=== PATIENT | male | born 1965 | race Caucasian/White ===

== ENCOUNTER 2020-12-13 09:19 | Emergency (ER) | payer OTHER ==
[2020-12-13] MEDS ORDERED: MEDROL 4MG DOSEP4 MG PO (10:24)
[2020-12-13] MEDS ORDERED: KETOROLAC TROME10 MG PO (10:24)
[2020-12-13] MEDS ORDERED: CYCLOBENZAPRINE10 MG PO (10:24)
== END 2020-12-13 10:58 | disposition home or self-care (01) ==
LOC: FER 09:19
DX: M54.16 Radiculopathy, lumbar region (principal); G89.29 Other chronic pain; R10.2 Pelvic and perineal pain; I10 Essential (primary) hypertension; Z88.0 Allergy status to penicillin
CPT/HCPCS: 99283; J1885

== ENCOUNTER 2021-09-05 12:48 | Inpatient (IN) | payer OTHER ==
[~2021-09-05] VITALS: Ht 172.7 cm; Wt 92.2 kg
[~2021-09-05 12:48] MED LIST: CYCLOBENZAPRINE10 MG PO; KETOROLAC TROME10 MG PO; MEDROL 4MG DOSEP4 MG PO
[2021-09-05 13:32] LABS: BASOPHIL 0.4 % (0-2); EOSINOPHIL 0.1 % (0-5); HCT 50.3 % (42.0-52.0); HGB 17.6 g/dl (13.2-18.0); LYMPHOCYTE 7.1 % (15-48); MCH 33.2 pg (25.0-31.0); MCV 94.9 fL (78.0-100.0); MONOCYTE 7.8 % (0-12); MPV 8.5 fL (6.0-9.5); NEUTROPHIL 83.2 % (41-80); NRBC 0; PLT 282 K/uL (150-400); RDW 13.2 % (11.5-14.0); WBC 27.7 K/uL (4.0-10.5)
[2021-09-05 13:43] LABS: BILIRUBIN 1+ mg/dL (NEGATIVE); BLOOD TRACE-LYSED Ery/uL (NEGATIVE); CLARITY CLEAR (CLEAR); COLOR YELLOW (YELLOW); GLUCOSE (U) NORMAL (NORMAL); LEUKOCYTES NEGATIVE Leu/uL (NEGATIVE); NITRITE NEGATIVE (NEGATIVE); PROTEIN TRACE (LOW) mg/dL (NEGATIVE); SPECIFIC GRAVITY >=1.030 (1.001-1.030); UROBILINOGEN 0.2 mg/dL (0.2-1.0); pH 5.5 (5.0-9.0)
[2021-09-05 13:51] LABS: BACTERIA TRACE; URINARY RBC RARE
[2021-09-05 13:52] LABS: MUCOUS MODERATE
[2021-09-05 13:52] LABS: LACTIC ACID 2.1 mmol/L (0.4-1.9)
[2021-09-05 13:57] LABS: BUN/CREAT RATIO (CALC) 8.5 RATIO; GLOBULIN (CALCULATION) 4.4 g/dL; POTASSIUM 4.3 mmol/L (3.5-5.1); TOTAL PROTEIN 8.4 g/dL (6.4-8.2)
[2021-09-05 14:30] LABS: CORONAVIRUS 2019 SARS-COV-2 NEGATIVE (NEGATIVE); INFLUENZA A NAA NEGATIVE (NEGATIVE)
[2021-09-05] MEDS ORDERED: PRINIVIL20 MG PO (17:29)
[2021-09-05] MEDS ORDERED: BACTRIM DS TAB1 EAC1 PO (17:30)
[2021-09-05] MEDS ORDERED: PRILOSEC20 MG PO (17:31)
[2021-09-05] MEDS ORDERED: NEURONTIN300 MG PO (17:32)
[2021-09-05] MEDS ORDERED: LEXAPRO20 MG PO (17:50)
[2021-09-05 21:41] LABS: BASOPHIL 0.4 % (0-2); EOSINOPHIL 0.2 % (0-5); HCT 41.4 % (42.0-52.0); HGB 13.9 g/dl (13.2-18.0); LYMPHOCYTE 6.8 % (15-48); MCH 32.9 pg (25.0-31.0); MCHC 33.6 g/dL (32.0-36.0); MCV 97.9 fL (78.0-100.0); MONOCYTE 9.2 % (0-12); MPV 8.5 fL (6.0-9.5); NEUTROPHIL 82.4 % (41-80); NRBC 0; PLT 214 K/uL (150-400); RBC 4.23 M/uL (4.70-6.00); RDW 13.5 % (11.5-14.0); WBC 19.4 K/uL (4.0-10.5)
[2021-09-05 21:55] LABS: BUN/CREAT RATIO (CALC) 9.8 RATIO; CREATININE 1.64 mg/dL (0.67-1.17); MAGNESIUM 1.9 mg/dL (1.8-2.4); POTASSIUM 4.5 mmol/L (3.5-5.1)
[2021-09-06 06:54] LABS: BASOPHIL 0.5 % (0-2); EOSINOPHIL 0.5 % (0-5); HCT 41.2 % (42.0-52.0); HGB 13.7 g/dl (13.2-18.0); LYMPHOCYTE 7.6 % (15-48); MCH 32.7 pg (25.0-31.0); MCHC 33.3 g/dL (32.0-36.0); MCV 98.3 fL (78.0-100.0); MONOCYTE 10.4 % (0-12); MPV 8.7 fL (6.0-9.5); NEUTROPHIL 80.2 % (41-80); NRBC 0; PLT 200 K/uL (150-400); RBC 4.19 M/uL (4.70-6.00); RDW 13.4 % (11.5-14.0)
[2021-09-06 06:55] LABS: WBC 16.8 K/uL (4.0-10.5)
[2021-09-06 07:10] LABS: ALBUMIN 2.8 g/dL (3.4-5.0); BILIRUBIN - TOTAL 0.5 mg/dL (0.2-1.0); BUN/CREAT RATIO (CALC) 8.1 RATIO; CREATININE 1.49 mg/dL (0.67-1.17)
[2021-09-06 07:20] LABS: TOTAL PROTEIN 5.8 g/dL (6.4-8.2)
--- NOTE | 2021-09-06 16:34 | NUR ---
09/06/21 Mr. Uribe lives at home with his spouse. He will require IV Merrem infusion at discharge. Mr. Uribe chose [facility] and they will accept the referral if Dr. Benítez agrees to sign their orders. (Pt has seen Dr. Benítez once).
[2021-09-07 06:14] LABS: BASOPHIL 0.5 % (0-2); EOSINOPHIL 1.5 % (0-5); HCT 39.2 % (42.0-52.0); HGB 13.2 g/dl (13.2-18.0); LYMPHOCYTE 11.8 % (15-48); MCH 32.7 pg (25.0-31.0); MCHC 33.7 g/dL (32.0-36.0); MONOCYTE 10.6 % (0-12); MPV 8.7 fL (6.0-9.5); NEUTROPHIL 74.9 % (41-80); NRBC 0; PLT 185 K/uL (150-400); RBC 4.04 M/uL (4.70-6.00); WBC 10.4 K/uL (4.0-10.5)
[2021-09-07 06:45] LABS: ALBUMIN 2.7 g/dL (3.4-5.0); BILIRUBIN - TOTAL 0.5 mg/dL (0.2-1.0); BUN/CREAT RATIO (CALC) 9.3 RATIO; CREATININE 0.97 mg/dL (0.67-1.17); GLOBULIN (CALCULATION) 3.6 g/dL; POTASSIUM 4.2 mmol/L (3.5-5.1); TOTAL PROTEIN 6.3 g/dL (6.4-8.2)
[2021-09-08 07:04] LABS: BASOPHIL 0.5 % (0-2); HCT 40.1 % (42.0-52.0); HGB 13.7 g/dl (13.2-18.0); LYMPHOCYTE 18.1 % (15-48); MCH 32.5 pg (25.0-31.0); MCHC 34.2 g/dL (32.0-36.0); MONOCYTE 13.7 % (0-12); MPV 8.8 fL (6.0-9.5); NEUTROPHIL 64.8 % (41-80); NRBC 0; PLT 234 K/uL (150-400); RBC 4.22 M/uL (4.70-6.00); RDW 12.8 % (11.5-14.0); WBC 9.2 K/uL (4.0-10.5)
[2021-09-08 07:14] LABS: ALBUMIN 2.9 g/dL (3.4-5.0); BILIRUBIN - TOTAL 0.5 mg/dL (0.2-1.0); BUN/CREAT RATIO (CALC) 7.8 RATIO; CREATININE 0.9 mg/dL (0.67-1.17); GLOBULIN (CALCULATION) 3.8 g/dL; POTASSIUM 3.6 mmol/L (3.5-5.1); TOTAL PROTEIN 6.7 g/dL (6.4-8.2)
[2021-09-08] MEDS ORDERED: CEFDINIR300 MG PO (08:49)
== END 2021-09-08 10:18 | disposition home or self-care (01) | DRG 862 ==
LOC: FER 12:48 → FMS 15:45
PROVIDERS: Family Medicine; Internal Medicine; ADMIT Internal Medicine
DX: T81.44XA Sepsis following a procedure, initial encounter (principal); A41.9 Sepsis, unspecified organism; R65.20 Severe sepsis without septic shock; N17.9 Acute kidney failure, unspecified; N41.0 Acute prostatitis; E87.2 Acidosis; Z20.822 Contact with and (suspected) exposure to COVID-19; K52.9 Noninfective gastroenteritis and colitis, unspecified; I10 Essential (primary) hypertension; Z88.0 Allergy status to penicillin; Z88.1 Allergy status to other antibiotic agents; Y83.8 Other surgical procedures as the cause of abnormal reaction of the patient, or of later complication, without mention of misadventure at the time of the procedure; Z98.890 Other specified postprocedural states
CPT/HCPCS: 36415; 71045; 80048; 80053; 81001; 82150; 83605; 83735; 84145; 84484; 85025; 87040; 87088; 87449; 93005; J0692; J1650; J2185; J3370; J7030; J7050; U0002